=== PATIENT | male | born 1990 | race Caucasian/White ===

== ENCOUNTER 2016-08-20 07:18 | Inpatient (IN) | payer OTHER ==
[~2016-08-20] VITALS: Ht 182.9 cm; Wt 81.3 kg
[2016-08-20] MEDS ORDERED: ALBUTEROL/IPRATROPIUM 2.5MG/0.5MG, 3 ML NPPB ONE (08:00)
[2016-08-20] MEDS ORDERED: ALBUTEROL/IPRATROPIUM 2.5MG/0.5MG, 3 ML ONE (08:12)
[2016-08-20] MEDS ORDERED: LEVOFLOXACIN/PMX 750MG/150ML 150 ML IVPB ONE (09:30)
[2016-08-20] MEDS ORDERED: SODIUM CHLORIDE FLUSH 10ML SYR IVF ONE (09:30)
[2016-08-20] MEDS ORDERED: methylPREDNISolone SOD SUCC 125 MG/2 ML IVP ONE (09:30)
[2016-08-20 09:48] LABS: HEMOGLOBIN 15.6 g/dL (13.7-18.0)
[2016-08-20 10:00] LABS: ASPARTATE AMINO TRANSFERASE 24 U/L (15-37); BLOOD UREA NITROGEN 8 mg/dL (7-18)
[2016-08-20] MEDS ORDERED: ACETAMINOPHEN 325 MG TABLET PO ONE (10:00)
[2016-08-20 10:06] LABS: IS PT STATUS REG ER OR PRE ER? YES
[2016-08-20] MEDS ORDERED: ACETAMINOPHEN 325 MG TABLET ONE (10:07)
[2016-08-20] MEDS ORDERED: LORazepam 2 MG/ML, 1ML IVPush ONE (11:30)
[2016-08-20 14:30] VITALS: BP 137/85
[2016-08-20] MEDS ORDERED: THIAMINE 200 MG in SODIUM CHLORIDE 0.9% 50 ML IV ONE (15:00)
[2016-08-20] MEDS: CEFTRIAXONE PMX 1GM/50ML 50 ML IV SCH (15:25)
[2016-08-20] MEDS: SODIUM CHLORIDE 0.9% 1,000 ML IV SCH (15:25)
[2016-08-20] MEDS: ENOXAPARIN 40 MG/0.4 ML SQ SCH (15:25)
[2016-08-20] MEDS: NICOTINE 14MG/24 HR PATCH.TD24 TD SCH (15:49)
[2016-08-20] MEDS: DOXYCYCLINE 100 MG in DEXTROSE 5% 250 ML IV SCH (17:09)
[2016-08-20 19:18] VITALS: BP 131/82
[2016-08-21] MEDS: POTASSIUM CHLORIDE 20 MEQ, MAGNESIUM SULFATE 1 GM, MVI ADULT 10 ML, THIAMINE 100 MG, FO... IV SCH ×2 (00:35→21:39)
[2016-08-21 01:06] VITALS: BP 126/78
[2016-08-21] MEDS: DOXYCYCLINE 100 MG in DEXTROSE 5% 250 ML IV SCH ×2 (05:20→16:59)
[2016-08-21] MEDS: LORazepam 1MG TABLET PO PRN ×2 (05:30→11:41)
[2016-08-21 05:39] LABS: HEMOGLOBIN 14.1 g/dL (13.7-18.0)
[2016-08-21 05:50] LABS: BLOOD UREA NITROGEN 6 mg/dL (7-18)
[2016-08-21 06:42] VITALS: BP 125/84
[2016-08-21] MEDS: ACETAMINOPHEN 325 MG TABLET PO PRN ×2 (11:41→21:52)
[2016-08-21 13:10] VITALS: BP 139/78
[2016-08-21] MEDS: CEFTRIAXONE PMX 1GM/50ML 50 ML IV SCH (15:29)
[2016-08-21] MEDS: ENOXAPARIN 40 MG/0.4 ML SQ SCH (16:58)
[2016-08-21] MEDS: NICOTINE 14MG/24 HR PATCH.TD24 TD SCH (16:58)
[2016-08-21] MEDS: SODIUM CHLORIDE 0.9% 1,000 ML IV SCH (16:58)
[2016-08-21 19:21] VITALS: BP 146/91
[2016-08-22 02:03] VITALS: BP 119/80
[2016-08-22] MEDS: DOXYCYCLINE 100 MG in DEXTROSE 5% 250 ML IV SCH ×2 (05:13→16:46)
[2016-08-22 07:00] VITALS: BP 136/84
[2016-08-22] MEDS: ACETAMINOPHEN 325 MG TABLET PO PRN ×2 (07:24→16:57)
[2016-08-22 12:55] VITALS: BP 152/82
[2016-08-22] MEDS: CEFTRIAXONE PMX 1GM/50ML 50 ML IV SCH (15:30)
[2016-08-22] MEDS: ENOXAPARIN 40 MG/0.4 ML SQ SCH (16:44)
[2016-08-22] MEDS: NICOTINE 14MG/24 HR PATCH.TD24 TD SCH (16:45)
[2016-08-22 18:29] VITALS: BP 135/80
[2016-08-22] MEDS: POTASSIUM CHLORIDE 20 MEQ, MAGNESIUM SULFATE 1 GM, MVI ADULT 10 ML, THIAMINE 100 MG, FO... IV SCH (23:49)
[2016-08-23 01:28] VITALS: BP 117/80
[2016-08-23] MEDS: DOXYCYCLINE 100 MG in DEXTROSE 5% 250 ML IV SCH (04:46)
[2016-08-23 07:38] VITALS: BP 131/78
[2016-08-23 12:00] VITALS: BP 146/97
[2016-08-23] MEDS ORDERED: DOXY100T PO (12:53)
[2016-08-23] MEDS ORDERED: CEFD300C2 PO (12:53)
[2016-08-23] MEDS ORDERED: MULT1TAB60 PO (12:56)
== END 2016-08-23 15:23 | disposition home or self-care (01) | DRG 871 ==
LOC: ED 08:55 → EDIP 11:27 → INTOOBSV 11:27 → 3NE 12:32 → OBSVTOIN 08-21 15:04
DX: A41.9 Sepsis, unspecified organism (principal); J18.9 Pneumonia, unspecified organism; F10.239 Alcohol dependence with withdrawal, unspecified; R09.02 Hypoxemia; F12.90 Cannabis use, unspecified, uncomplicated; F10.20 Alcohol dependence, uncomplicated; Z59.0 Homelessness
CPT/HCPCS: 36415; 71010; 80048; 80053; 83605; 83880; 84145; 84484; 85025; 85610; 87040; 87070; 87205; 93005; 94640; 96365; 96366; G0378; J0696; J1650; J1956; J3411; J3475; J3480; J7060; J7620; J7030

== ENCOUNTER 2017-01-18 14:45 | Emergency (ER) | payer OTHER ==
[~2017-01-18] VITALS: Ht 182.9 cm; Wt 76.2 kg
[~2017-01-18 14:45] MED LIST: CEFD300C37 PO; DOXY100T PO; MULT1TAB60 PO
[2017-01-18 14:48] VITALS: BP 131/88
[2017-01-18] MEDS ORDERED: DIPHENHYDRAMINE 25 MG CAPSULE ONE (15:28)
[2017-01-18] MEDS ORDERED: DIPHENHYDRAMINE 25 MG CAPSULE PO ONE (15:30)
== END 2017-01-18 16:02 | disposition home or self-care (01) ==
LOC: ED 15:55
DX: L50.0 Allergic urticaria (principal)
CPT/HCPCS: 99283; J7512; Q0163